=== PATIENT | female | born 1940 | race African-American/Black ===

== ENCOUNTER 2025-04-04 02:36 | Inpatient (IN) | payer MEDICAID ==
[~2025-04-04] VITALS: Ht 172.7 cm; Wt 69.6 kg
[2025-04-04] VITALS (13 sets, daily range): BP systolic 118–166; BP diastolic 66–89; PULSE 55–68; RESP 13–20; TEMP 36.114–36.7; O2SAT 92–100
[2025-04-04 03:48] LABS: BASOPHILS % 0.5 % (0.0-2.0); EOSINOPHILS % 2.2 % (0.0-5.0); HEMATOCRIT. 38.1 % (36.0-48.0); HEMOGLOBIN. 12.2 g/dL (12.0-16.0); LYMPHOCYTES % 25.1 % (20.0-50.0); MEAN PLATELET VOLUME 7.9 fl (7.4-10.4); MONOCYTES % 9.2 % (2.0-8.0); NEUTROPHILS % 63.0 % (40.0-76.0); PLATELET 190 x1000/uL (130-400); RED BLOOD CELL COUNT 4.53 mill/uL (4.2-5.4); RED CELL DISTRIBUTION WIDTH 18.2 % (11.6-14.6)
[2025-04-04 04:02] LABS: TROPONIN I HIGH SENSITIVITY 27 ng/L (3.0-34)
[2025-04-04 04:04] LABS: UREA NITROGEN BLOOD 46 mg/dL (9-23)
[2025-04-04 04:05] LABS: CREATININE 6.5 mg/dL (0.6-1.0)
[2025-04-04] MEDS: LABETALOL 5MG/ML 4ML INJ IV ONE ×2 (04:11→05:22)
[2025-04-04 05:44] LABS: TROPONIN I HIGH SENSITIVITY 30 ng/L (3.0-34)
[2025-04-04] MEDS ORDERED: ONDANSETRON HCL 4MG/2ML INJ IV PRN (07:30)
[2025-04-04] MEDS ORDERED: ACETAMINOPHEN 325MG TABLET PO PRN (07:30)
[2025-04-04] MEDS ORDERED: HYDROCODONE/ACETAMINOPHEN 5/325MG TABLET PO PRN (07:30)
[2025-04-04] MEDS: CLONIDINE 0.1MG TABLET PO PRN (07:57)
[2025-04-04 08:16] LABS: BASOPHILS % 0.4 % (0.0-2.0); EOSINOPHILS % 0.4 % (0.0-5.0); HEMATOCRIT. 33.1 % (36.0-48.0); HEMOGLOBIN. 10.7 g/dL (12.0-16.0); LYMPHOCYTES % 10.8 % (20.0-50.0); MEAN PLATELET VOLUME 7.8 fl (7.4-10.4); MONOCYTES % 13.2 % (2.0-8.0); NEUTROPHILS % 75.2 % (40.0-76.0); PLATELET 181 x1000/uL (130-400); RED BLOOD CELL COUNT 3.91 mill/uL (4.2-5.4); RED CELL DISTRIBUTION WIDTH 18.4 % (11.6-14.6)
[2025-04-04 08:51] LABS: UREA NITROGEN BLOOD 47.0 mg/dL (9-23)
[2025-04-04 08:56] LABS: CREATININE 7.0 mg/dL (0.6-1.0)
[2025-04-04] MEDS: AMLODIPINE 10MG TABLET PO SCH (09:04)
[2025-04-04] MEDS: FUROSEMIDE 40MG/4ML VIAL IV SCH (09:04)
[2025-04-04] MEDS: HYDRALAZINE HCL 50MG TABLET PO SCH (13:35)
[2025-04-04] MEDS: NITROGLYCERIN OINT 1GM/INCH UDPKT TD SCH (13:35)
[2025-04-04] MEDS ORDERED: NITROGLYCERIN OINT 1GM/INCH UDPKT TD SCH (14:00)
[2025-04-04] MEDS ORDERED: HYDRALAZINE HCL 50MG TABLET PO SCH (14:00)
[2025-04-04 15:45] LABS: CREATINE KINASE MB FRACTION 1.4 ng/mL (0.5-3.6); TROPONIN I HIGH SENSITIVITY 31.0 ng/L (3.0-34)
[2025-04-04 16:22] LABS: HEPATITIS C AB NON REACTIVE (Neg) (Negative)
[2025-04-04] MEDS ORDERED: DEXTROSE 50% WATER 50ML SYRINGE IV PRN (16:30)
[2025-04-04] MEDS: BLOOD SUGAR DIAGNOSTIC STRIP TEST SCH (17:02)
[2025-04-04] MEDS: INSULIN LISPRO 100 UNITS/ML SUBCUT SCH (17:02)
[2025-04-04 23:10] LABS: CREATINE KINASE MB FRACTION 1.0 ng/mL (0.5-3.6)
[2025-04-04 23:11] LABS: TROPONIN I HIGH SENSITIVITY 24.0 ng/L (3.0-34)
[2025-04-05] VITALS (13 sets, daily range): BP systolic 128–177; BP diastolic 56–83; PULSE 64–77; RESP 13–22; TEMP 36.00288–37.1; O2SAT 96–100
[2025-04-05 07:21] LABS: TRIGLYCERIDE 55.0 mg/dL (0-150); UREA NITROGEN BLOOD 26.0 mg/dL (9-23)
[2025-04-05 07:22] LABS: LDL CHOLESTEROL 91.0 mg/dL (5-100); TROPONIN I HIGH SENSITIVITY 26.0 ng/L (3.0-34)
[2025-04-05 07:28] LABS: HEMATOCRIT. 31.8 % (36.0-48.0); HEMOGLOBIN. 10.2 g/dL (12.0-16.0); MEAN PLATELET VOLUME 7.8 fl (7.4-10.4); PLATELET 167 x1000/uL (130-400); RED BLOOD CELL COUNT 3.79 mill/uL (4.2-5.4); RED CELL DISTRIBUTION WIDTH 18.6 % (11.6-14.6)
[2025-04-05 07:47] LABS: CREATININE 5.0 mg/dL (0.6-1.0)
[2025-04-05] MEDS ORDERED: NALOXONE HCL 0.4MG/ML VIAL IV PRN (08:45)
[2025-04-05 09:02] LABS: CLARITY URINE CLOUDY (CLEAR); COLOR URINE YELLOW (YELLOW); GLUCOSE URINE NEGATIVE (NEGATIVE); KETONES URINE NEGATIVE (NEGATIVE); LEUKOCYTE ESTERASE URINE 2+ (NEGATIVE); NITRITE URINE NEGATIVE (NEGATIVE); OCCULT BLOOD URINE TRACE (NEGATIVE); PH URINE >=9.0 (4.5-8.0); PROTEIN URINE 3+ (NEGATIVE); SPECIFIC GRAVITY URINE 1.010 (1.005-1.030); UROBILINOGEN URINE 0.2 E.U./dL (0.2-1.0)
[2025-04-05 09:29] LABS: SQUAMOUS EPITHELIAL CELL URINE 3+ /lpf (RARE/1+); YEAST URINE 1+
[2025-04-05 09:30] LABS: BACTERIA URINE 4+; RBC URINE 0-2 /hpf (0-2)
[2025-04-05] MEDS: HYDRALAZINE HCL 50MG TABLET PO SCH (13:45)
[2025-04-05 14:34] LABS: BAND% 1.0 % (1.0-6.0); EOSINOPHILS % MANUAL 4.0 % (0.0-5.0); LYMPHOCYTES % MANUAL 24.0 % (20.0-60.0); MONOCYTES % MANUAL 9.0 % (2.0-8.0); NEUTROPHILS % MANUAL 62.0 % (45.0-75.0); NUCLEATED RED BLOOD CELLS 1 /100 WBC
[2025-04-05 14:35] LABS: PLATELET ESTIMATE NORMAL
[2025-04-06] VITALS (10 sets, daily range): BP systolic 131–185; BP diastolic 55–80; PULSE 63–71; RESP 12–20; TEMP 36.4–37.1; O2SAT 97–100
[2025-04-06 06:50] LABS: HEMATOCRIT. 34.6 % (36.0-48.0); HEMOGLOBIN. 11.0 g/dL (12.0-16.0); MEAN PLATELET VOLUME 7.9 fl (7.4-10.4); PLATELET 174 x1000/uL (130-400); RED BLOOD CELL COUNT 4.10 mill/uL (4.2-5.4); RED CELL DISTRIBUTION WIDTH 19.0 % (11.6-14.6)
[2025-04-06 06:56] LABS: CREATININE 4.5 mg/dL (0.6-1.0); UREA NITROGEN BLOOD 21.0 mg/dL (9-23)
[2025-04-06] MEDS: CLONIDINE 0.1MG TABLET PO SCH (11:22)
[2025-04-06 12:18] LABS: BAND% 2.0 % (1.0-6.0); EOSINOPHILS % MANUAL 2.0 % (0.0-5.0); LYMPHOCYTES % MANUAL 20.0 % (20.0-60.0); MONOCYTES % MANUAL 21.0 % (2.0-8.0); NEUTROPHILS % MANUAL 55.0 % (45.0-75.0)
[2025-04-06 12:19] LABS: PLATELET ESTIMATE NORMAL
[2025-04-06] MEDS: HYDRALAZINE HCL 100MG TABLET PO SCH (14:29)
== END 2025-04-06 17:23 | disposition home or self-care (01) | DRG 194 ==
LOC: ER 03:08 → 3WST 04:40 → EDBEDREQTM 04:57 → EDBEDREQ 04:57 → ENRESERV 11:19
PROVIDERS: ADMIT Internal Medicine Nephrology; ATTEND Internal Medicine Nephrology
PROC: 5A1D70Z Performance of Urinary Filtration, Intermittent, Less than 6 Hours Per Day (ICD-10-PCS; principal; 2025-04-04)
PROC: 5A1D70Z Performance of Urinary Filtration, Intermittent, Less than 6 Hours Per Day (ICD-10-PCS; 2025-04-05)
DX: I13.2 Hypertensive heart and chronic kidney disease with heart failure and with stage 5 chronic kidney disease, or end stage renal disease (principal); J96.01 Acute respiratory failure with hypoxia; N18.6 End stage renal disease; I16.0 Hypertensive urgency; D63.1 Anemia in chronic kidney disease; E11.22 Type 2 diabetes mellitus with diabetic chronic kidney disease; I50.9 Heart failure, unspecified; E78.00 Pure hypercholesterolemia, unspecified; Z79.899 Other long term (current) drug therapy; Z99.2 Dependence on renal dialysis; E87.70 Fluid overload, unspecified
CPT/HCPCS: 36415; 71045; 80048; 80061; 81003; 82550; 82553; 82962; 83036; 84484; 85025; 86705; 87340; 90935; 93005; 96374; 99291; J1938; J3490